=== PATIENT | female | born 1935 | race Caucasian/White ===

== ENCOUNTER 2016-11-05 00:58 | Inpatient (IN) | payer MEDICARE, OTHER ==
[2016-11-05] VITALS (17 sets, daily range): BP systolic 91–139; BP diastolic 47–88
[~2016-11-05] VITALS: Ht 161.3 cm; Wt 67.7 kg
[~2016-11-05 00:58] MED LIST: ACLI400A2 IH; BRIM10DR14 OP; BRIMON0.2 OU; DEXT1DRO7 OU; DORZ10DR2 OU; FAMO20TA3 PO; FLUT1DIS26 IH; FLUT9.9S NSEACH; HYDR-3812 PO; IPRA3AMP IH; LATA2.5D5 OU; METH2.5T PO; OXYC-471 PO; POTA10TA10 PO; PRD10T PO; RT-ALBUINH IH; SPIR50TA2 PO
[2016-11-05] MEDS ORDERED: CATHETER FLUSH 10 ML SYR IV PRN (01:30)
[2016-11-05] MEDS ORDERED: NS IV 500 ML 500 ML IV ONE (01:30)
[2016-11-05] MEDS ORDERED: NS IV 500 ML 500 ML ONE (01:32)
[2016-11-05] MEDS ORDERED: NS IV 1000 ML 1,000 ML ONE (01:32)
[2016-11-05] MEDS ORDERED: NS IV 1000 ML 1,000 ML IV SCH ×4 (02:30→10:45)
[2016-11-05 06:28] LABS: CREATININE SERUM 5.83 MG/DL (0.60-1.30); PHOSPHORUS 5.6 MG/DL (2.3-4.7)
[2016-11-05 06:35] LABS: POTASSIUM 6.8 MMOL/L (3.6-5.0)
--- NOTE | 2016-11-05 06:41 | Pulmonary Consultation ---
History of Present Illness History of Present Illness Date of Consultation 11/05/16 06:35 Date of Admission History of Present Illness 81yo transferred here from [facility] for higher level of care. Allergies and Home Medications Allergies Coded Allergies: duloxetine (Verified Allergy, Unknown, 11/05/16) Home Medications Aclidinium Risco 400 Mcg Aer.pow.ba, 1 PUFF IH DAILY PRN for SHORTNESS OF BREATH, (Reported) LAST DATE FILLED UNKNOWN Albuterol Sulfate 8.5 Gm Hfa.aer.ad, 2 PUFF IH Q4H PRN for SHORTNESS OF BREATH, (Reported) LAST FILLED 2014 #1 INHALER Brimonidine Tartrate 5 Ml Btl, 1 DROP OU BID, (Reported) Dextran 70/Hypromellose 1 Each Droperette, 1 DROP OU DAILY PRN for DRY EYES, ( Reported) Dorzolamide HCl 10 Ml Drops, 1 DROP OU TID, (Reported) Famotidine 20 Mg Tablet, 20 MG PO DAILY PRN for HEARTBURN, (Reported) Fluticasone Propionate 9.9 Ml [place].susp, 1-2 SPRAYS NSEACH DAILY PRN for ALLERGIES, (Reported) Fluticasone/Salmeterol 1 Each Blst.w.dev, 1 PUFF IH BID, (Reported) LAST FILLED 08/02/15 #1 INHALER Ipratropium/Albuterol Sulfate 3 Ml Ampul.neb, 3 ML IH Q4H PRN for SHORTNESS OF BREATH, (Reported) Latanoprost 2.5 Ml Drops, 1 DROP OU HS, (Reported) Methotrexate Sodium 2.5 Mg Tablet, 20 MG PO WEEK, (Reported) TAKES 8 (2.5 MG) TABLETS WEEKLY Oxycodone HCl/Acetaminophen 1 Each Tablet, 1 TAB PO Q4H PRN for PAIN, (Reported) Potassium Chloride 10 Meq Tablet.er, 10 MEQ PO DAILY, (Reported) LAST FILLED 08/02/15 #30 Prednisone 10 Mg Tab, 30 MG PO DAILY, #12 Prescribed by: JENY ORTIZ on 11/25/15 1229 Spironolactone 50 Mg Tablet, 50 MG PO DAILY, (Reported) LAST FILLED 08/02/15 #30 Past Afdqclc-Wgszjc-Slruyn Hx Patient Social History Alcohol Use: Denies Use Recreational Drug Use: No Smoking Status: Current Everyday Smoker Type Used: Cigarettes Recent Foreign Travel: No Contact w/Someone Who Travel: No Recent Infectious Disease Expo: No Recent Hopitalizations: No Physical Abuse Screen: No Sexual Abuse: No Immunizations Up To Date PED Vaccines UTD: No Seasonal Allergies Seasonal Allergies: No Surgeries HX Surgeries: Yes (NERVES IN NECK AND LOWER BACK CUT/ABLATED FOR CHRONIC PAIN TREATMENT) Respiratory Hx Respiratory Disorders: Yes Respiratory Disorders: COPD Cardiovascular Hx Cardiac Disorders: No Neurological Hx Neurological Disorders: No Reproductive System Hx Reproductive Disorders: No Sexually Transmitted Disease: No HIV/AIDS: No Genitourinary Hx Genitourinary Disorders: No Genitourinary Disorders: Renal Failure Gastrointestinal Hx Gastrointestinal Disorders: No Musculoskeletal Hx Musculoskeletal Disorders: Yes Musculoskeletal Disorders: Arthritis, Rheumatoid Arthritis, Chronic Back Pain Endocrine Hx Endocrine Disorders: Yes ("PRE-DIABETIC" ) Endocrine Disorders: Diabetes, Non-Insulin dep HEENT HX ENT Disorders: Yes HEENT Disorders: Glaucoma Cancer Hx Cancer: No Psychosocial Hx Psychiatric Problems: No Integumentary HX Skin/Integumentary Disorder: No Blood Transfusions Hx Blood Disorders: No Adverse Reaction to a Blood Tr: No Exam Exam Vital Signs Date Time Temp Pulse Resp B/P (MAP) Pulse Ox O2 Delivery O2 Flow Rate FiO2 11/05/16 06:00 72 14 113/51 99 Nasal Cannula 2.00 11/05/16 05:00 74 12 131/58 100 Nasal Cannula 2.00 11/05/16 04:00 98 2.00 11/05/16 04:00 98.1 75 10 120/50 98 Nasal Cannula 2.00 11/05/16 03:30 80 12 128/52 100 Nasal Cannula 2.00 11/05/16 03:00 74 18 139/79 100 Nasal Cannula 2.00 11/05/16 02:30 81 21 137/75 100 Nasal Cannula 2.00 11/05/16 02:00 77 12 127/52 100 Nasal Cannula 2.00 11/05/16 01:45 75 16 113/56 100 Nasal Cannula 2.00 11/05/16 01:30 79 16 124/56 100 Nasal Cannula 3.00 11/05/16 01:29 75 11/05/16 01:27 98.1 78 17 124/77 100 Nasal Cannula 3.00 11/05/16 01:17 100 2.00 I & O 11/05/16 07:00 Intake Total 500 ml Output Total 25 ml Balance 475 ml Results Lab Laboratory Tests 11/05/16 05:50 Assessment/Plan Assessment/Plan Hyperkalemia -10units IV insulin -IVF -HC03, Kayexalate PO dehydration Check labs, radiology Clinical Quality Measures DVT/VTE Risk/Contraindication: Risk Factor Score Per Nursin RFS Level Per Nursing on Admit: 4+=Very High MIMI SELLERS DO November 05, 2016 06:41
[2016-11-05] MEDS ORDERED: inSUlin (REGULAR) HUMAN 1 UNIT/0.01 ML (CHARGE PER UNIT) SC NR (06:45)
[2016-11-05] MEDS ORDERED: SOD POLYSTYRENE 30 GM/120 ML (KAYEXALATE) BULK BOTTLE PR ONE (06:45)
[2016-11-05] MEDS ORDERED: SODIUM BICARB 8.4% 50 MEQ/50 ML (ABBOTT) SYR IV ONE (06:45)
[2016-11-05] MEDS ORDERED: SOD POLYSTERENE 15 GM/60 ML (KAYEXALATE) UNIT DOSE PO NR (06:45)
[2016-11-05] MEDS ORDERED: SODIUM BICARB 8.4% 50 MEQ/50 ML (ABBOTT) SYR IV NR (06:45)
[2016-11-05] MEDS ORDERED: HYDR-3812 PO (08:13)
[2016-11-05] MEDS ORDERED: FLUO20CA25 PO (08:13)
[2016-11-05] MEDS ORDERED: ALPR0.5T7 PO (08:13)
[2016-11-05] MEDS ORDERED: FURO20TA4 PO (08:13)
[2016-11-05] MEDS ORDERED: METF500T4 PO (08:13)
[2016-11-05] MEDS ORDERED: CALC10009 PO (08:13)
[2016-11-05] MEDS ORDERED: LISI2.5T PO (08:13)
[2016-11-05] MEDS ORDERED: ALBU2.5V4 IH (08:13)
[2016-11-05] MEDS ORDERED: PRED5TAB PO (08:13)
--- NOTE | 2016-11-05 08:36 | Diagnostic Imaging Report ---
PROCEDURE: CT head without contrast. TECHNIQUE: Multiple contiguous axial images were obtained through the brain without the use of intravenous contrast. INDICATION: Altered mental status. FINDINGS: There is no intracranial hemorrhage, edema or mass effect. The brain parenchyma demonstrate periventricular and deep white hypodensities compatible with chronic microvascular ischemic changes. The calvarium, the paranasal sinuses and orbits visualized portions appear grossly unremarkable. IMPRESSION: No intracranial hemorrhage. Dictated by: Dictated on workstation # [id number]
--- NOTE | 2016-11-05 09:49 | Diagnostic Imaging Report ---
EXAMINATION: Portable upright radiograph of the chest. INDICATION: Shortness of breath. FINDINGS: The lungs are hyperinflated with prominent interstitial markings. The heart size is mildly enlarged. No effusion or pneumothorax. The mediastinum and kavon appear unremarkable. IMPRESSION: Cardiomegaly with pulmonary vascular congestion. COPD. Dictated by: Dictated on workstation # [id number]
--- NOTE | 2016-11-05 10:56 | History & Physical-Hospitalist ---
HPI History of Present Illness: HPI/Chief Complaint CC: Acute Renal failure HPI: This is a 81 yoWF who presents with renal failure and has hyperkalemia. 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 Louis ordered fluids Insulin administered this morning 1 L bolus to be administered. Pt will have a Picc line placed Pt has been living at home, but pt's family wanted her to be in assisted living Patient Interview: Pt is breathing well and is not in pain Pt confirms Dr. Dowell as PCP Physical exam stable Dr. Driver discusses kidney function with pt and the need for fluids Scribed by Farideh Fleming under the direct supervision of Dr. Driver. Source: patient Date Seen 11/05/16 Attending Physician Samy Whitten MD PCP Ton Topete MD Referring Physician Date of Admission November 05, 2016 at 00:59 Home Medications & Allergies Home Medications Reviewed patient Home Medication Reconciliation Form Allergies Allergies Coded Allergies duloxetine (Verified Allergy, Unknown, 11/05/16) Past Pnqgqyn-Mbtsdo-Rvnuiu Hx Patient Social History Marrital Status: Employed/Student: retired Alcohol Use: Denies Use Recreational Drug Use: No Smoking Status: Current Everyday Smoker Type Used: Cigarettes Physical Abuse Screen: No Sexual Abuse: No Recent Foreign Travel: No Contact w/other who traveled: No Recent Hopitalizations: No Recent Infectious Disease Expo: No Seasonal Allergies Seasonal Allergies: No Surgeries HX Surgeries: Yes (NERVES IN NECK AND LOWER BACK CUT/ABLATED FOR CHRONIC PAIN TREATMENT) Surgeries: Orthopedic Respiratory Hx Respiratory Disorders: Yes Respiratory Disorders: COPD, Emphysema, Sleep Apnea Cardiovascular Hx Cardiovascular Disorders: No Neurological Hx Neurological Disorders: No Reproductive System Hx Reproductive Disorders: No Sexually Transmitted Disease: No HIV/AIDS: No Genitourinary Hx Genitourinary Disorders: Yes Genitourinary Disorders: Renal Failure Gastrointestinal Hx Gastrointestinal Disorders: Yes Gastrointestinal Disorders: Chronic Constipation Musculoskeletal Hx Musculoskeletal Disorders: Yes Musculoskeletal Disorders: Arthritis, Rheumatoid Arthritis, Chronic Back Pain Endocrine Hx Endocrine Disorders: Yes ("PRE-DIABETIC" ) Endocrine Disorders: Diabetes, Non-Insulin dep HEENT HX ENT Disorders: Yes HEENT Disorders: Glaucoma Cancer Hx Cancer: No Psychosocial Hx Psychiatric Problems: No Integumentary HX Skin/Integumentary Disorder: No Blood Transfusions Hx Blood Disorders: No Adverse Reaction to a Blood Tr: No Review of Systems ROS-Unable to Obtain: minimal details given dementia and fatigue level Constitutional: see HPI Physical Exam Physical Exam Vital Signs Vital Sign - Last 12Hours 11/05/16 11/05/16 01:17 01:27 Temp 98.1 Pulse 78 Resp 17 B/P (MAP) 124/77 Pulse Ox 100 O2 Delivery Nasal Cannula O2 Flow Rate 2.00 Capillary Refill : General Appearance: No Apparent Distress, WD/WN, Chronically ill, Thin Eyes: Bilateral Eye Normal Inspection, Bilateral Eye PERRL HEENT: PERRL/EOMI, Normal ENT Inspection, Pharynx Normal Neck: Full Range of Motion, Normal Inspection, Non Tender, Supple, Carotid Bruit Respiratory: Chest Non Tender, Lungs Clear, Normal Breath Sounds, No Accessory Muscle Use, No Respiratory Distress Cardiovascular: Regular Rate, Rhythm, No Edema, No Gallop, No JVD, No Murmur, Normal Peripheral Pulses Gastrointestinal: Normal Bowel Sounds, No Organomegaly, No Pulsatile Mass, Non Tender, Soft Back: Normal Inspection, No CVA Tenderness, No Vertebral Tenderness Extremity: Normal Capillary Refill, Normal Inspection, Normal Range of Motion, Non Tender, No Calf Tenderness, No Pedal Edema Neurologic/Psychiatric: Alert, Oriented x3, No Motor/Sensory Deficits, Normal Mood/Affect Skin: Normal Color, Warm/Dry Lymphatic: No Adenopathy Results Results/Procedures Lab Laboratory Tests 11/05/16 05:50 Assessment/Plan Admission Diagnosis Assessment: Acute on chronic renal failure with hyperkalemia Severe dehydration along with chronic renal insufficiency Hyponatremia Dementia Assessment and Plan Plan: Palliative care consult Picc line Poor prognosis Move to 4th floor Check labs in am Refuses dialysis and that is reasonable Clinical Quality Measures DVT/VTE Risk/Contraindication: Risk Factor Score Per Nursin RFS Level Per Nursing on Admit: 4+=Very High MALATHI DRIVER DO November 05, 2016 10:56
--- NOTE | 2016-11-05 11:44 | Diagnostic Imaging Report ---
INDICATION: PICC line placement. PA chest obtained at 11:27 a.m. and compared to 7:55 a.m. the same day. FINDINGS: Heart is normal in size. Aorta is tortuous. There is mild central vascular prominence. There is a new right-sided PICC line with tip overlying the upper SVC. There is some mild bibasilar atelectasis. IMPRESSION: New right-sided PICC line tip in upper SVC. Otherwise stable findings compared with earlier today. Dictated by: Dictated on workstation # [id number]
[2016-11-05] MEDS: NS IV 1000 ML 1,000 ML IV SCH ×3 (12:00→20:29)
[2016-11-05 13:26] LABS: BASOPHILS % (AUTO) 0 % (0-10); EOSINOPHILS % (AUTO) 0 % (0-10); LYMPHOCYTES # (AUTO) 0.7 X 10^3 (1.0-4.0); LYMPHOCYTES % (AUTO) 8 % (12-44); MEAN CORPUSCULAR HEMOGLOBIN 29 PG (25-34); MEAN CORPUSCULAR HGB CONC 33 G/DL (32-36); MEAN CORPUSCULAR VOLUME 88 FL (80-99); MEAN PLATELET VOLUME 10.1 FL (7.4-10.4); MONOCYTES # (AUTO) 0.3 X 10^3 (0.0-1.0); MONOCYTES % (AUTO) 4 % (0-12); NEUTROPHILS # (AUTO) 6.8 X 10^3 (1.8-7.8); NEUTROPHILS % (AUTO) 88 % (42-75); PLATELET COUNT 316 10^3/uL (130-400); RED CELL DISTRIBUTION WIDTH 13.9 % (10.0-14.5); WHITE BLOOD COUNT 7.8 10^3/uL (4.3-11.0)
[2016-11-05 13:32] LABS: CALCIUM 7.5 MG/DL (8.5-10.1); CREATININE SERUM 5.3 MG/DL (0.60-1.30); MAGNESIUM 1.5 MG/DL (1.8-2.4); PHOSPHORUS 5.1 MG/DL (2.3-4.7); POTASSIUM 5.2 MMOL/L (3.6-5.0)
[2016-11-05 14:01] LABS: BAND NEUTROPHILS 0 %; BASOPHILS % (MANUAL) 0 %; EOSINOPHILS % (MANUAL) 0 %; LYMPHOCYTES % (MANUAL) 15 %; NEUTROPHILS % (MANUAL) 82 %
[2016-11-06] VITALS: BP 114/56
[2016-11-06] MEDS: NS IV 1000 ML 1,000 ML IV SCH ×2 (00:31→04:59)
[2016-11-06 04:26] VITALS: BP 141/75
[2016-11-06 06:20] LABS: CALCIUM 7.5 MG/DL (8.5-10.1); CREATININE SERUM 5.31 MG/DL (0.60-1.30); POTASSIUM 5.4 MMOL/L (3.6-5.0)
[2016-11-06] MEDS ORDERED: SODIUM BICARB 8.4% 50 MEQ/50 ML (ABBOTT) SYR IV NR (07:15)
[2016-11-06] MEDS ORDERED: FUROSEMIDE 40 MG/4 ML INJ (LASIX) IVP NR (07:15)
--- NOTE | 2016-11-06 07:47 | Pulmonary Progress Note ---
Exam Exam Vital Signs Date Time Temp Pulse Resp B/P (MAP) Pulse Ox O2 Delivery O2 Flow Rate FiO2 11/06/16 04:26 97.6 77 18 141/75 94 Nasal Cannula 2.00 11/06/16 01:01 86 11/06/16 00:00 96.1 84 17 114/56 94 Nasal Cannula 2.00 11/05/16 20:49 98.8 75 20 138/88 95 Nasal Cannula 2.00 11/05/16 19:00 85 11/05/16 16:00 98 2.00 11/05/16 16:00 97.0 79 22 108/58 94 Nasal Cannula 2.00 11/05/16 13:00 67 11/05/16 12:31 98 2.00 11/05/16 11:45 68 18 110/56 100 Nasal Cannula 2.00 11/05/16 10:00 69 17 110/55 100 Nasal Cannula 2.00 11/05/16 09:00 78 16 135/69 100 Nasal Cannula 2.00 11/05/16 08:47 2.00 11/05/16 08:00 98 2.00 11/05/16 08:00 72 19 91/55 99 Nasal Cannula 2.00 I & O 11/06/16 07:00 Intake Total 3000 ml Output Total 5 ml Balance 2995 ml General Appearance: No Apparent Distress, WD/WN, Chronically ill, Thin HEENT: PERRL/EOMI, Normal ENT Inspection, Pharynx Normal Neck: Full Range of Motion, Normal Inspection, Non Tender, Supple, Carotid Bruit Respiratory: Chest Non Tender, Lungs Clear, Normal Breath Sounds, No Accessory Muscle Use, No Respiratory Distress Cardiovascular: Regular Rate, Rhythm, No Edema, No Gallop, No JVD, No Murmur, Normal Peripheral Pulses Extremity: Normal Capillary Refill, Normal Inspection, Normal Range of Motion, Non Tender, No Calf Tenderness, No Pedal Edema Neurologic/Psychiatric: Alert, Oriented x3, No Motor/Sensory Deficits, Normal Mood/Affect Skin: Normal Color, Warm/Dry Lymphatic: No Adenopathy Results Lab Laboratory Tests 11/05/16 05:50 11/05/16 11:52 11/06/16 05:45 Assessment/Plan Assessment/Plan Hyperkalemia - improved -10units IV insulin -IVF -HC03, Kayexalate PO Acute renal failure with oliguria and volume overload -consider transfer for possible HD -80mg IV lasix x 1 Metabolic acidosis -2 amps NaHC03 -start bicarb gtt Family is considering hospice care. Clinical Quality Measures DVT/VTE Risk/Contraindication: Risk Factor Score Per Nursin RFS Level Per Nursing on Admit: 4+=Very High MIMI SELLERS DO November 06, 2016 07:47
[2016-11-06] MEDS: SODIUM BICARBONATE 8.4% VIAL 100 MEQ in 1/2 NS IV SOLUTION 1,000 ML IV SCH (08:16)
--- NOTE | 2016-11-06 11:20 | Progress Note-Hospitalist ---
Progress Note HPI/CC on Admission CC: Acute Renal failure HPI: This is a 81 yoWF who presents with renal failure and has hyperkalemia. 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 Pt will have a Picc line placed Pt has been living at home, but pt's family wanted her to be in assisted living Patient Interview: Pt is breathing well and is not in pain Pt confirms Dr. Dowell as PCP Physical exam stable Dr. Driver discusses kidney function with pt and the need for fluids Scribed by Farideh Fleming under the direct supervision of Dr. Driver. Progress Notes/Assess & Plan Date Seen 11/06/16 Admission Dx/Process Assessment: Acute on chronic renal failure with hyperkalemia Severe dehydration along with chronic renal insufficiency Hyponatremia Dementia Diagonsis/Assessment & Plan Chart Review: Creat remains 5.3 K+ 5.4 even after IVF SW Review: Pt will be Comfort Care Pt has had no success with Lasix Patient Interview: Pt received 80 of Lasix in the am Palliative care saw pt this morning Pt would not like to go through dialysis, she would rather live the rest of her life as is. Pt denies experiencing pain Physical exam stable. Pt's family would like to have her on Comfort Care, but if pt worsens, they would like her to be on Hospice. Assessment: Acute on chronic renal failure with hyperkalemia unrecoverable Severe dehydration along with chronic renal insufficiency Hyponatremia resolved Dementia Plan: Palliative care consult PICC line Poor prognosis Refuses dialysis and that is reasonable Comfort Care Scribed by Farideh Fleming under the direct supervision of Dr. Driver. MALATHI DRIVER DO November 06, 2016 11:20
[2016-11-06 16:29] VITALS: BP 117/57
[2016-11-06] MEDS ORDERED: ACETAMINOPHEN 650 MG SUPP (TYLENOL) PR PRN (20:00)
[2016-11-06] MEDS ORDERED: SALIVA STIMULANT MOUTH SPRAY (BIOTENE) 1.5 OZ MM PRN (20:00)
[2016-11-06] MEDS ORDERED: GLYCOPYRROLATE 0.2 MG/ML (ROBINUL) 2 ML VIAL IV PRN (20:00)
[2016-11-06] MEDS ORDERED: BISACODYL 10 MG SUPP (DULCOLAX) PR PRN (20:00)
[2016-11-06] MEDS ORDERED: RT-ALBUTEROL/IPRATROPIUM 3 ML (DUONEB) VIAL INH PRN (20:00)
[2016-11-06] MEDS ORDERED: SCOPOLAMINE 1.5 MG (TRANSDERM-SCOP) PATCH TOP SCH (20:00)
[2016-11-06] MEDS ORDERED: ARTIFICIAL TEARS OINT (LACRI-LUBE) 3.5 GM TUBE OU PRN (20:00)
[2016-11-06] MEDS ORDERED: PROMETHAZINE INJ 25 MG/ML (PHENERGAN) AMP IVP PRN (20:00)
[2016-11-06] MEDS ORDERED: ATROPINE 1% OPHTHALMIC SOLN 2 ML SL PRN (20:00)
[2016-11-06] MEDS ORDERED: ONDANSETRON 4 MG/2 ML (SDV) Z0FRAN IVP PRN (20:00)
[2016-11-06] MEDS ORDERED: ARTIFICAL TEARS 0.4 ML UNIT DOSE (REFRESH PLUS) OU PRN (20:00)
[2016-11-06] MEDS ORDERED: LORazepam INJ 2 MG/ML (ATIVAN) VIAL ONE (20:16)
[2016-11-06] MEDS: LORazepam INJ 2 MG/ML (ATIVAN) VIAL IVP PRN (21:39)
[2016-11-06] MEDS: morphine INJ 4 MG/ML 1 ML (VIAL/SYRINGE) IV PRN (21:40)
[2016-11-07] MEDS: SODIUM BICARBONATE 8.4% VIAL 100 MEQ in 1/2 NS IV SOLUTION 1,000 ML IV SCH (04:08)
--- NOTE | 2016-11-07 06:07 | Pulmonary Progress Note ---
Subjective Subjective/Events-last exam No distress noted. Exam Exam Vital Signs Date Time Temp Pulse Resp B/P (MAP) Pulse Ox O2 Delivery O2 Flow Rate FiO2 11/06/16 22:08 2.00 11/06/16 20:00 99 2.00 11/06/16 19:00 86 11/06/16 16:29 96.8 80 18 117/57 99 Nasal Cannula 2.00 11/06/16 13:00 84 11/06/16 11:27 2.00 11/06/16 09:00 2.00 11/06/16 07:00 97 I & O 11/07/16 07:00 Intake Total 1150 ml Output Total 25 ml Balance 1125 ml General Appearance: No Apparent Distress, WD/WN, Chronically ill, Thin HEENT: PERRL/EOMI, Normal ENT Inspection, Pharynx Normal Neck: Full Range of Motion, Normal Inspection, Non Tender, Supple, Carotid Bruit Respiratory: Chest Non Tender, Lungs Clear, Normal Breath Sounds, No Accessory Muscle Use, No Respiratory Distress Cardiovascular: Regular Rate, Rhythm, No Edema, No Gallop, No JVD, No Murmur, Normal Peripheral Pulses Extremity: Normal Capillary Refill, Normal Inspection, Normal Range of Motion, Non Tender, No Calf Tenderness, No Pedal Edema Neurologic/Psychiatric: Alert, Oriented x3, No Motor/Sensory Deficits, Normal Mood/Affect Skin: Normal Color, Warm/Dry Lymphatic: No Adenopathy Results Lab Laboratory Tests 11/05/16 11:52 11/06/16 05:45 Assessment/Plan Assessment/Plan Hyperkalemia - improved Acute renal failure with oliguria and volume overload Metabolic acidosis Pt is comfort care only now. She will probably be going home with hospice today. Clinical Quality Measures DVT/VTE Risk/Contraindication: Risk Factor Score Per Nursin RFS Level Per Nursing on Admit: 4+=Very High MIMI SELLERS DO November 07, 2016 06:07
--- NOTE | 2016-11-07 11:38 | Discharge Summary-Hospitalist ---
Diagnosis/Chief Complaint Date of Admission November 05, 2016 at 00:59 Date of Discharge Admission Diagnosis Assessment: Acute on chronic renal failure with hyperkalemia Severe dehydration along with chronic renal insufficiency Hyponatremia Dementia Discharge Diagnosis Assessment: Acute on chronic renal failure with hyperkalemia unrecoverable Severe dehydration along with chronic renal insufficiency Hyponatremia Dementia Chart Review: Creat remains 5.3 K+ 5.4 even after IVF SW Review: Pt will be Comfort Care Pt has had no success with Lasix Patient Interview: Pt received 80 of Lasix in the am Palliative care saw pt this morning Pt would not like to go through dialysis, she would rather live the rest of her life as is. Pt denies experiencing pain Physical exam stable. Pt's family would like to have her on Comfort Care, but if pt worsens, they would like her to be on Hospice. Assessment: Acute on chronic renal failure with hyperkalemia unrecoverable Severe dehydration along with chronic renal insufficiency Hyponatremia resolved Dementia Plan: Palliative care consult PICC line Poor prognosis Refuses dialysis and that is reasonable Comfort Care Scribed by Farideh Fleming under the direct supervision of Dr. Driver. Reason Hospital Visit/Course CC: Acute Renal failure HPI: This is a 81 yoWF who presents with renal failure and has hyperkalemia. 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 Pt will have a Picc line placed Pt has been living at home, but pt's family wanted her to be in assisted living Patient Interview: Pt is breathing well and is not in pain Pt confirms Dr. Dowell as PCP Physical exam stable Dr. Driver discusses kidney function with pt and the need for fluids Scribed by Farideh Fleming under the direct supervision of Dr. Driver. Note from 11/07/16 redevelopment specialist: Pt will be Dc with [facility] today. PICC line will stay. Strickland cath will be DC. Patient Interview: Pt family states she can open her eyes but otherwise not doing much. Pt will go to [facility] today. Physical exam was stable. Pt does not have any needs currently. Scribed by Kraig Adames under the direct supervision of Dr. Driver. 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 Discharge Summary Discharge Physical Examination Allergies: Coded Allergies: duloxetine (Verified Allergy, Unknown, 11/05/16) Vitals & I&Os Vital Signs Date Time Temp Pulse Resp B/P (MAP) Pulse Ox O2 Delivery O2 Flow Rate FiO2 11/07/16 08:47 2.00 11/07/16 06:58 101 11/06/16 20:00 99 11/06/16 16:29 96.8 18 117/57 Nasal Cannula Hospital Course Labs (last 24 hrs) Microbiology 11/05/16 MRSA Screen - Final, Complete MRSA not isolated Discharge Home Medications: Active Scripts Active Lorazepam Intensol (Lorazepam) 2 Mg/1 Ml Oral.conc 1 Mg PO Q3HR PRN Morphine Sulfate Concentrate 20mg/ml (Morphine Sulfate) 100 Mg/5 Ml Solution 5 Mg PO Q2H PRN Acetaminophen 650 Mg Supp.rect 650 Mg MT Q4H PRN 30 Days Instructions to patient/family Please see electonic discharge instructions given to patient. Clinical Quality Measures DVT/VTE Risk/Contraindication: Risk Factor Score Per Nursin RFS Level Per Nursing on Admit: 4+=Very High MALATHI DRIVER DO November 07, 2016 11:38
[2016-11-07] MEDS ORDERED: LORA2ORA PO (11:48)
[2016-11-07] MEDS ORDERED: MORP100S3 PO (11:48)
[2016-11-07] MEDS ORDERED: ACET650S15 PR (11:48)
[2016-11-07] MEDS: LORazepam INJ 2 MG/ML (ATIVAN) VIAL IVP PRN (13:27)
[2016-11-07] MEDS: morphine INJ 4 MG/ML 1 ML (VIAL/SYRINGE) IV PRN (13:27)
[2016-11-09] MEDS ORDERED: SCOPOLAMINE PATCH REMOVAL TP SCH (19:59)
== END 2016-11-07 15:15 | disposition hospice, inpatient (51) | DRG 683 ==
LOC: ICU 00:59 → 4TH 12:05
PROVIDERS: ADMIT Internal Medicine; ATTEND Internal Medicine
PROC: 02HV33Z Insertion of Infusion Device into Superior Vena Cava, Percutaneous Approach (ICD-10-PCS; principal; 2016-11-05)
DX: N17.9 Acute kidney failure, unspecified (principal); N18.6 End stage renal disease; E87.1 Hypo-osmolality and hyponatremia; E86.0 Dehydration; E87.5 Hyperkalemia; E11.22 Type 2 diabetes mellitus with diabetic chronic kidney disease; J44.9 Chronic obstructive pulmonary disease, unspecified; Z66 Do not resuscitate; Z51.5 Encounter for palliative care; F17.210 Nicotine dependence, cigarettes, uncomplicated; G47.30 Sleep apnea, unspecified; F03.90 Unspecified dementia, unspecified severity, without behavioral disturbance, psychotic disturbance, mood disturbance, and anxiety; H40.9 Unspecified glaucoma; K59.09 Other constipation; M06.9 Rheumatoid arthritis, unspecified; M19.91 Primary osteoarthritis, unspecified site; M54.9 Dorsalgia, unspecified
CPT/HCPCS: 36415; 36569; 70450; 71010; 76937; 80048; 82962; 83605; 83735; 84100; 85007; 85027; 87081